=== PATIENT | female | born 1990 | race Caucasian/White ===

== ENCOUNTER 2018-04-13 21:18 | Emergency (ER) | payer SELFPAY ==
[2018-04-13 21:27] VITALS: Ht 167.6 cm
[2018-04-14 00:15] VITALS: BP 107/72
== END 2018-04-14 00:15 | disposition home or self-care (01) ==
LOC: ED 21:18
DX: S39.012A Strain of muscle, fascia and tendon of lower back, initial encounter (principal); S16.1XXA Strain of muscle, fascia and tendon at neck level, initial encounter; R42 Dizziness and giddiness; Z88.0 Allergy status to penicillin; W07.XXXA Fall from chair, initial encounter; Y93.89 Activity, other specified; Y92.89 Other specified places as the place of occurrence of the external cause; Y99.8 Other external cause status
CPT/HCPCS: J1885